=== PATIENT | female | born 1940 | race Caucasian/White ===

== ENCOUNTER → 2018-10-17 14:22 | Outpatient (CLI) | payer MEDICARE, SELFPAY ==
--- NOTE | 2018-10-17 | TISS_PTH ---
PATIENT: KAMERON WARD LOC: [facility] #:[id number] AGE/SX: 84/F ROOM: RE10/17/[address]: Dr. Loyd Dan DDS : 1940 BED: DIS: SPEC #: [id number] RECD: 10/17/18 13:58 STATUS: KRUPA MERCEDES #: [id number] GISELE: 10/17/18 00:[address]: Loyd Dan DEPT: SURGICAL PATHOLOGY RECD BY: Svetlana Lanza ENTERED: 10/17/18 16:11 SP TYPE: Tissue Bx APOORVA DR: Dr. Ramos Ivan MD Tissues: TISSUE SURGICALLY REMOVED Procedures: PAS Fungus (control) Special Stain Group I Surgery Specimen Level IV HEADER OPERATION: Biopsy lingual PRE-OP DIAGNOSIS: Swelling since 09/09/18; check for fungal elements TISSUE SUBMITTED: Right lingual tissue, nonhealing ulceration MICROSCOPIC DIAGNOSIS Right lingual tissue, biopsy: Fragments of squamous mucosa with ulceration, acute and chronic inflammation, granulation tissue reaction and reactive changes. Negative for malignancy. Special stain for fungi is negative for organisms; matched control is appropriate. RIGOBERTO:cheo 10/18/18 MICROSCOPIC DESCRIPTION Slides are reviewed. GROSS DESCRIPTION Received in fixative is one container labeled with the patient's name and designated right lingual tissue. The specimen consists of two pieces of davila-pink soft tissue that in aggregate measure 1.2 x 0.5 x 0.2 cm. The entire specimen is submitted in one cassette. / RIGOBERTO:cheo 10/17/18 TC:2 CPT: 70526, 12379
== END ==
PROVIDERS: Family Provider Family Medicine; PCP Family Medicine; Referring Provider Dentist Oral and Maxillofacial Surgery; Visit Provider Dentist Oral and Maxillofacial Surgery
DX: M79.89 Other specified soft tissue disorders (principal)
CPT/HCPCS: 88305; 88312

== ENCOUNTER 2020-08-24 07:11 | Outpatient (RCR) | payer MEDICARE, SELFPAY ==
[2015-09-28 07:40] VITALS: BMI 27.3
== END 2020-08-24 23:59 ==
LOC: IMMUN 07:11
PROVIDERS: PCP Family Medicine; Visit Provider Family Medicine
DX: Z23 Encounter for immunization (principal)
CPT/HCPCS: 0011A; 0012A